=== PATIENT | female | born 1990 | race Caucasian/White ===

== ENCOUNTER 2017-08-03 13:02 | Emergency (ER) | payer OTHER ==
[~2017-08-03] VITALS: Ht 152.4 cm; Wt 75.0 kg
[2017-08-03 13:08] VITALS: BP 145/65; PULSE 78; RESP 16; TEMP 98.3; O2SAT 99
[2017-08-03] MEDS ORDERED: BACT800T5 PO (14:31)
[2017-08-03] MEDS ORDERED: IBUP1TAB7 PO (14:31)
--- NOTE | 2017-08-03 14:31 | PD ---
HPI Chief Complaint: Lump, Cyst, Hernia Time Seen by Provider: 13:57 Travel History International Travel<30 days: No Contact w/Intl Traveler<30days: No Traveled to known affect area: No History of Present Illness HPI 26-year-old female presents to the emergency department with complaint of a cyst to her left armpit 3 days. Says she gets them often and they come and go. She denies fever, vomiting. Has tried hot compresses for symptom management. Aggravated to palpation and when she puts her arm down completely. No known relieving factors. No known allergies. Says she has a primary care provider but does not know the name. Denies significant past medical history. Has no other medical complaints. No other modifying factors or associated signs and symptoms. PFSH Past Medical History ?: Unknown LMP: July 09, 2017 Social History Tobacco Use: No Allergies-Medications (Allergen,Severity, Reaction): Coded Allergies: No Known Allergies (Unverified , 08/03/17) Reported Meds & Prescriptions Reported Meds & Active Scripts Active Ibuprofen 800 Mg Tab 800 Mg PO Q6HR PRN Bactrim DS (Sulfamethoxazole-Trimethoprim) 800-160 Mg Tab 1 Tab PO BID 10 Days Review of Systems Except as stated in HPI: all other systems reviewed are Neg Physical Exam Narrative GENERAL: Well-nourished, well-developed feet patient, in no acute distress; afebrile, nontoxic-appearing SKIN: There is an indurated area to the left axilla which measures about 1 cm in diameter. It is fluctuant and there is no pointing or drainage. There is a very minimal zone of inflammation around it, but no lymphangitis. HEAD: Atraumatic. Normocephalic. EYES: Pupils equal and round. No scleral icterus. No injection or drainage. ENT: Mucosa pink and moist. Airway patent. NECK: Trachea midline. CARDIOVASCULAR: Regular rate. RESPIRATORY: No accessory muscle use. GASTROINTESTINAL: Rounded. MUSCULOSKELETAL: No obvious deformities. No clubbing. No cyanosis. No edema. NEUROLOGICAL: Awake and alert. Oriented 3. No obvious cranial nerve deficits. Motor grossly within normal limits. Normal speech. PSYCHIATRIC: Appropriate mood and affect; insight and judgment normal. Data Data Last Documented VS Vital Signs Date Time Temp Pulse Resp B/P (MAP) Pulse Ox O2 Delivery O2 Flow Rate FiO2 08/03/17 13:08 98.3 78 16 145/65 (91) 99 Orders Orders Ed Discharge Order (08/03/17 14:31) MDM Medical Decision Making Medical Screen Exam Complete: Yes Emergency Medical Condition: Yes Medical Record Reviewed: Yes Differential Diagnosis Folliculitis, abscess, cellulitis Narrative Course 26-year-old female with folliculitis to the left axilla. There is a small 1 cm fluctuant palpable lump without pointing or drainage. The patient does not want any incision or drainage at this time. I did offer to try to drain the small abscessed area with a needle, and the patient declined. Says she wants to take antibiotics and if they do not work she will come back for incision and drainage. Says taking antibiotics have helped in the past. Instructed patient to return with worsening of symptoms, despite antibiotics, for incision and drainage if needed. Patient verbalized understanding and agreement. Bactrim, ibuprofen prescribed for home. Instructed patient to follow up with primary care provider. Patient verbalizes understanding and agreement with treatment plan. Patient is medically cleared and stable for discharge. Discussed reasons to return to the emergency department. Patient agrees with treatment plan. The patients vital signs are stable and the patient is stable for outpatient follow-up and treatment. Patient discharged home, stable and in no acute distress. Diagnosis Primary Impression: Folliculitis of left axilla Referrals: [facility] Primary Care Physician Patient Instructions: Abscess (ED), Abscess Follow-up (ED), Folliculitis (ED), General Instructions Additional Instructions: Complete full course of antibiotics Warm compresses to the affected area Keep area clean and dry Ibuprofen or Tylenol as directed and as needed for pain and inflammation Return to the emergency department if worsening of abscess and need of incision and drainage, as discussed Follow-up with primary care provider Return to emergency department immediately with worsening of symptoms Med/Other Pt SpecificInfo: Prescription(s) given Scripts Ibuprofen (Ibuprofen) 800 Mg Tab 800 MG PO Q6HR Y for PAIN, #20 TAB 0 Refills Prov: Jaimie Pineda 08/03/17 Sulfamethoxazole-Trimethoprim (Bactrim DS) 800-160 Mg Tab 1 TAB PO BID for Infection for 10 Days, #20 TAB 0 Refills Prov: Jaimie Pineda 08/03/17 Disposition: 01 DISCHARGE HOME Condition: Stable Jaimie Pineda Aug 03, 2017 14:31
== END 2017-08-03 14:46 | disposition home or self-care (01) ==
LOC: NEPK 13:02
DX: L73.9 Follicular disorder, unspecified (principal)
CPT/HCPCS: 99283